=== PATIENT | female | born 2000 | race Two or more races ===

== ENCOUNTER 2024-12-29 14:59 | Emergency (ER) | payer SELFPAY ==
[~2024-12-29] VITALS: Ht 160 cm; Wt 59.0 kg
[2024-12-29] MEDS ORDERED: ONDANSETRON ODT 4 MG TAB.RAPDIS ONE (15:57)
[2024-12-29] MEDS ORDERED: ACETAMINOPHEN 500 MG TABLET ONE (15:57)
[2024-12-29] MEDS: ACETAMINOPHEN 500 MG TABLET PO ONE (16:00)
[2024-12-29] MEDS: ONDANSETRON ODT 4 MG TAB.RAPDIS SL ONE (16:00)
[2024-12-29 16:45] VITALS: BP 138/79
[2024-12-29 17:13] VITALS: BP 138/79; TEMP 98.5; O2SAT 99
== END 2024-12-29 17:14 | disposition home or self-care (01) ==
LOC: ER 15:31
DX: S06.0X0A Concussion without loss of consciousness, initial encounter (principal); S92.001A Unspecified fracture of right calcaneus, initial encounter for closed fracture; S16.1XXA Strain of muscle, fascia and tendon at neck level, initial encounter; S66.300A Unspecified injury of extensor muscle, fascia and tendon of right index finger at wrist and hand level, initial encounter; S09.8XXA Other specified injuries of head, initial encounter; R42 Dizziness and giddiness; R11.0 Nausea; W01.0XXA Fall on same level from slipping, tripping and stumbling without subsequent striking against object, initial encounter; Y93.89 Activity, other specified; Y92.89 Other specified places as the place of occurrence of the external cause; Y99.8 Other external cause status
CPT/HCPCS: 70450; 72125; 73140; 73600; 73630; A4606; A4663; A9150; Q0162